=== PATIENT | female | born 1985 | race Caucasian/White ===

== ENCOUNTER 2017-10-26 20:23 | Emergency (ER) | payer OTHER ==
[~2017-10-26] VITALS: Ht 160 cm; Wt 122.5 kg
[~2017-10-26 20:23] MED LIST: BACTRIM DS TAB1 EACH PO; ERYTHROMYCIN E3.5 G3 OPHTHALMIC; KEFLEX500 MG PO; MEDROLDOSEPACK PO; WELLBUTRIN XL150 MG; ZOLOFT25 MG PO
[2017-10-26] MEDS ORDERED: SPIRONOLACTONE50 MG PO (20:47)
[2017-10-26] MEDS ORDERED: ADDERALL 10 MG10 MG PO (20:47)
[2017-10-26 21:12] LABS: URINE BILIRUBIN NEGATIVE (Negative); URINE BLOOD 3+ (Negative); URINE CLARITY CLOUDY; URINE COLOR BROWN; URINE GLUCOSE-RANDOM NEGATIVE (Negative); URINE KETONES TRACE (Negative); URINE LEUKOCYTES-REFLEX NEGATIVE (Negative); URINE NITRITE-REFLEX NEGATIVE (Negative); URINE PROTEIN 3+ (Negative); URINE SPECIFIC GRAVITY >= 1.030 (1.005-1.030)
[2017-10-26 21:25] LABS: CASTS None Seen /LPF (None Seen); SQUAMOUS 4-10 Moderate /LPF (0-3)
[2017-10-26 21:27] LABS: URINE WBC-REFLEX 6-15 Few /HPF (0-5)
[2017-10-26 21:28] LABS: BACTERIA-REFLEX 1-9 Few /HPF (None Seen); CRYSTALS None Seen /LPF (None Seen); MUCUS 4-6 Moderate strn/LPF (None Seen); URINE RBC >20 Many /HPF (0-2)
[2017-10-26] MEDS ORDERED: MACROBID 100 M100 M1 PO (22:00)
[2017-10-26] MEDS ORDERED: ZOFRAN ODT4 MG PO (22:00)
[2017-10-26] MEDS ORDERED: HYDROCODONE-AP1 EAC6 PO (22:00)
[2017-10-26 22:23] VITALS: BP 139/96
== END 2017-10-26 22:25 | disposition home or self-care (01) ==
LOC: M.ERS 20:23
PROVIDERS: Emergency Medicine
DX: N39.0 Urinary tract infection, site not specified (principal); F41.9 Anxiety disorder, unspecified; Z90.49 Acquired absence of other specified parts of digestive tract; Z87.442 Personal history of urinary calculi; Z88.1 Allergy status to other antibiotic agents

== ENCOUNTER 2018-01-15 22:20 | Emergency (ER) | payer OTHER, MEDICAID ==
[~2018-01-15] VITALS: Ht 160 cm; Wt 104.3 kg
[~2018-01-15 22:20] MED LIST changes: +ADDERALL 10 MG10 MG PO; +HYDROCODONE-AP1 EAC6 PO; +MACROBID 100 M100 M1 PO; +SPIRONOLACTONE50 MG PO; +ZOFRAN ODT4 MG PO
[2018-01-15 23:09] VITALS: BP 146/103
== END 2018-01-15 23:09 | disposition home or self-care (01) ==
LOC: M.ERS 22:20
DX: S80.862A Insect bite (nonvenomous), left lower leg, initial encounter (principal); F41.9 Anxiety disorder, unspecified; Z88.1 Allergy status to other antibiotic agents; Z87.442 Personal history of urinary calculi; Z90.49 Acquired absence of other specified parts of digestive tract; W57.XXXA Bitten or stung by nonvenomous insect and other nonvenomous arthropods, initial encounter; Y92.89 Other specified places as the place of occurrence of the external cause; Y93.89 Activity, other specified; Y99.8 Other external cause status

== ENCOUNTER 2018-04-08 10:46 | Emergency (ER) | payer OTHER, MEDICAID ==
[~2018-04-08] VITALS: Ht 160 cm; Wt 120.2 kg
[2018-04-08 11:05] LABS: URINE BILIRUBIN NEGATIVE (Negative); URINE BLOOD 3+ (Negative); URINE CLARITY CLEAR; URINE COLOR YELLOW; URINE GLUCOSE-RANDOM NEGATIVE (Negative); URINE KETONES NEGATIVE (Negative); URINE LEUKOCYTES-REFLEX TRACE (Negative); URINE NITRITE-REFLEX NEGATIVE (Negative); URINE PROTEIN NEGATIVE (Negative); URINE UROBILINOGEN 0.2 E.U./dl (0.2-1.0)
[2018-04-08 11:11] LABS: BACTERIA-REFLEX 1-9 Few /HPF (None Seen); CASTS None Seen /LPF (None Seen); CRYSTALS None Seen /LPF (None Seen); MUCUS 0-3 Light strn/LPF (None Seen); SQUAMOUS 4-10 Moderate /LPF (0-3); URINE WBC-REFLEX 0-5 Rare /HPF (0-5)
[2018-04-08 11:47] LABS: ABSOLUTE BASOPHILS 0.1 thou/uL (0.0-0.2); ABSOLUTE EOSINOPHILS 0.1 thou/uL (0.0-0.7); ABSOLUTE LYMPHOCYTES 1.9 thou/uL (0.8-5.3); ABSOLUTE MONOCYTES 0.4 thou/uL (0.0-1.2); ABSOLUTE NEUTROPHILS 5.5 thou/uL (1.6-8.1); BASOPHILS 0.9 %; EOSINOPHILS 1.2 %; HEMATOCRIT 39.8 % (37.0-47.0); HEMOGLOBIN 13.4 gm/dL (12.0-15.0); LYMPHOCYTES 23.9 %; MCH 27.1 pg (26.0-34.0); MCHC 33.6 g/dL (28.0-37.0); MCV 80.8 fL (80.0-100.0); MONOCYTES 4.6 %; MPV 8.4 fl. (7.2-11.1); NUCLEATED RBCS 0 /100WBC; PLATELET COUNT* 223 thou/uL (150-400); POLYS 69.4 %; RBC 4.93 mil/uL (4.20-5.00); RDW-CV 13.8 % (10.5-14.5)
[2018-04-08 11:55] LABS: CREATININE 0.9 mg/dL (0.6-1.3); POTASSIUM 4.1 mmol/L (3.5-5.1)
[2018-04-08 12:00] LABS: ALBUMIN 3.7 g/dL (3.4-5.0); TOTAL BILIRUBIN 0.3 mg/dL (<0.1-1.0); TOTAL PROTEIN 7.3 g/dL (6.4-8.2)
[2018-04-08] MEDS ORDERED: CIPRO250 M2 PO (12:22)
[2018-04-08] MEDS ORDERED: ZOFRAN4 MG PO (12:22)
[2018-04-08] MEDS ORDERED: NORCO 5-325 TA1 EACH PO (12:22)
[2018-04-08] MEDS ORDERED: FLOMAX0.4 MG PO (12:26)
[2018-04-08 12:33] VITALS: BP 168/83
== END 2018-04-08 12:34 | disposition home or self-care (01) ==
LOC: M.ERS 10:46
PROVIDERS: Nurse Practitioner Family
DX: N20.1 Calculus of ureter (principal); F41.9 Anxiety disorder, unspecified; Z88.1 Allergy status to other antibiotic agents; Z90.49 Acquired absence of other specified parts of digestive tract; Z87.01 Personal history of pneumonia (recurrent); Z98.890 Other specified postprocedural states

== ENCOUNTER 2021-01-13 17:26 | Emergency (ER) | payer OTHER ==
[~2021-01-13] VITALS: Ht 160 cm; Wt 136.1 kg
[~2021-01-13 17:26] MED LIST changes: +CIPRO250 M2 PO; +FLOMAX0.4 MG PO; +NORCO 5-325 TA1 EACH PO; +ZOFRAN4 MG PO
[2021-01-13] MEDS ORDERED: COZAAR 50 MG TA50 M1 PO (17:38)
[2021-01-13] MEDS ORDERED: LEXAPRO 10 MG T10 M2 PO (17:38)
[2021-01-13] MEDS ORDERED: CEPHALEXIN500 MG PO (18:08)
[2021-01-13] MEDS ORDERED: HYDROCODON-ACE1 EAC7 PO (18:08)
[2021-01-13 18:17] VITALS: BP 121/70
== END 2021-01-13 18:18 | disposition home or self-care (01) ==
LOC: M.ERS 17:26
DX: T80.89XA Other complications following infusion, transfusion and therapeutic injection, initial encounter (principal); M79.602 Pain in left arm; F41.9 Anxiety disorder, unspecified; Z87.442 Personal history of urinary calculi; Z90.89 Acquired absence of other organs; Z79.899 Other long term (current) drug therapy; Z88.1 Allergy status to other antibiotic agents; Y84.8 Other medical procedures as the cause of abnormal reaction of the patient, or of later complication, without mention of misadventure at the time of the procedure; Y92.89 Other specified places as the place of occurrence of the external cause

== ENCOUNTER 2021-01-23 17:06 | Emergency (ER) | payer OTHER ==
[~2021-01-23] VITALS: Ht 172.7 cm; Wt 108.9 kg
[~2021-01-23 17:06] MED LIST changes: +CEPHALEXIN500 MG PO; +COZAAR 50 MG TA50 M1 PO; +HYDROCODON-ACE1 EAC7 PO; +LEXAPRO 10 MG T10 M2 PO
[2021-01-23] MEDS ORDERED: HYDROCODON-ACE1 EAC7 PO (17:19)
[2021-01-23 17:22] VITALS: BP 165/65
== END 2021-01-23 17:23 | disposition home or self-care (01) ==
LOC: M.ERS 17:06
DX: S40.022A Contusion of left upper arm, initial encounter (principal); Z98.51 Tubal ligation status; Z87.442 Personal history of urinary calculi; Z90.49 Acquired absence of other specified parts of digestive tract; Z88.1 Allergy status to other antibiotic agents; X58.XXXA Exposure to other specified factors, initial encounter; Y93.89 Activity, other specified; Y92.89 Other specified places as the place of occurrence of the external cause; Y99.8 Other external cause status